=== PATIENT | female | born 1935 | race Caucasian/White ===

== ENCOUNTER 2017-09-13 11:04 | Inpatient (IN) | payer MEDICARE ==
[~2017-09-13] VITALS: Ht 157.5 cm; Wt 80.2 kg
[2017-09-13] MEDS: DOXYCYCLINE 100MG+NS 250ML 250 ML IV SCH (02:45)
[2017-09-13 11:39] LABS: BASOPHILS % (AUTO) 0.5 % (0.0-5.0); EOSINOPHILS % (AUTO) 1.2 % (0.0-8.0); HEMATOCRIT 38.7 % (36-48); LYMPHOCYTES % (AUTO) 19.5 % (21.0-51.0); MEAN CORPUSCULAR HEMOGLOBIN 31.4 pg (27.0-33.0); MEAN CORPUSCULAR HGB CONC 33.5 g/dL (32.0-36.0); MEAN CORPUSCULAR VOLUME 93.6 fL (79-99); MONOCYTES % (AUTO) 8.7 % (3.0-13.0); NEUTROPHILS % (AUTO) 70.1 % (40.0-77.0); PLATELET COUNT (AUTO) 226 K/uL (130-400); RED BLOOD CELL COUNT(AUTO) 4.14 MIL/uL (4.00-5.50); RED CELL DISTRIBUTION WIDTH 13.1 % (11.0-15.5); WHITE BLOOD COUNT (AUTO) 9.2 K/uL (4.8-10.8)
[2017-09-13 11:45] LABS: APPEARANCE,URINE Clear (CLEAR); BILIRUBIN,URINE Negative (NEGATIVE); COLOR,URINE Yellow (YELLOW); GLUCOSE, URINE (UA) Negative (NEGATIVE); KETONES,URINE Negative (NEGATIVE); LEUKOCYTE ESTERASE ,URINE Trace (NEGATIVE); NITRATE,URINE Negative (NEGATIVE); OCCULT BLOOD,URINE Negative (NEGATIVE); PROTEIN,URINE Negative (NEGATIVE); UROBILINOGEN,URINE 0.2 mg/dL (0.2-1.0)
[2017-09-13 11:57] LABS: BACTERIA,URINE Rare /HPF (None Seen); RBC,URINE 0-1 /HPF (0-1); SQUAMOUS EPITHELIAL CELL,UR Rare /LPF (0-2); WBC,URINE 0-1 /HPF (0-1)
[2017-09-13 11:58] LABS: CREATININE 1.1 mg/dL (0.5-1.5); POTASSIUM 3.5 mmol/L (3.5-5.1)
[2017-09-13] MEDS ORDERED: IOPAMIDOL-370 75 ML VIAL IV ONE (12:01)
[2017-09-13 12:02] LABS: ALBUMIN 3.3 g/dL (3.5-5.0); BILIRUBIN,TOTAL 0.8 mg/dL (0.2-1.0); TOTAL PROTEIN, SERUM 6.9 g/dL (6.0-8.3)
[2017-09-13] MEDS ORDERED: ONDANSETRON HCL 4 MG/2 ML VIAL ONE ×2 (12:48→15:53)
[2017-09-13] MEDS ORDERED: HYDROMORPHONE 1 MG/1 ML AMP ONE (12:49)
[2017-09-13] MEDS ORDERED: CEFTRIAXONE SODIUM 1 GM ONE (13:00)
[2017-09-13] MEDS ORDERED: METRONIDAZOLE 500MG/100ML BAG 100 ML ONE (13:02)
[2017-09-13] MEDS ORDERED: SODIUM CHLORIDE 0.9% 1000ML 1,000 ML IV SCH ×2 (14:31→14:45)
[2017-09-13] MEDS ORDERED: KETOROLAC TROMETHAMINE 15MG/ML IV PRN (14:45)
[2017-09-13] MEDS ORDERED: MORPHINE SULFATE 2 MG/ML 1ML SYG IV PRN (14:45)
[2017-09-13] MEDS ORDERED: METRONIDAZOLE 500MG/100ML BAG 100 ML IV SCH (14:45)
[2017-09-13] MEDS ORDERED: ACETAMINOPHEN 325 MG TAB PO PRN ×2 (14:45)
[2017-09-13] MEDS ORDERED: GUAIFENESIN-DM 200/20 MG 10 ML PO PRN (14:45)
[2017-09-13 18:12] VITALS: BP 148/86
[2017-09-13 20:21] VITALS: BP 127/72
[2017-09-13] MEDS: CEFTAZIDIME PENTAHYDRATE 1 GM/VIAL IVP SCH (20:51)
[2017-09-13] MEDS: LACTATED RINGERS 1000ML 1,000 ML IV SCH (21:01)
[2017-09-13] MEDS: METRONIDAZOLE 500MG/100ML BAG 100 ML IVPB SCH (21:09)
[2017-09-13 23:10] VITALS: BP 134/69
[2017-09-14] MEDS: CEFTAZIDIME PENTAHYDRATE 1 GM/VIAL IVP SCH ×3 (03:56→21:24)
[2017-09-14 04:27] VITALS: BP 138/63
[2017-09-14 04:32] LABS: HEMATOCRIT 32.3 % (36-48); MEAN CORPUSCULAR HEMOGLOBIN 33.5 pg (27.0-33.0); MEAN CORPUSCULAR HGB CONC 35.6 g/dL (32.0-36.0); MEAN CORPUSCULAR VOLUME 94.1 fL (79-99); PLATELET COUNT (AUTO) 205 K/uL (130-400); RED BLOOD CELL COUNT(AUTO) 3.44 MIL/uL (4.00-5.50); RED CELL DISTRIBUTION WIDTH 13.2 % (11.0-15.5); WHITE BLOOD COUNT (AUTO) 6.8 K/uL (4.8-10.8)
[2017-09-14 04:45] LABS: POTASSIUM 3.7 mmol/L (3.5-5.1)
[2017-09-14] MEDS: METRONIDAZOLE 500MG/100ML BAG 100 ML IVPB SCH ×4 (04:50→21:25)
[2017-09-14] MEDS: LACTATED RINGERS 1000ML 1,000 ML IV SCH ×3 (04:50→22:00)
[2017-09-14] MEDS ORDERED: DOXYCYCLINE 100MG+NS 250ML 250 ML IV ONE (04:59)
[2017-09-14] MEDS: DOXYCYCLINE 100MG+NS 250ML 250 ML IV SCH (06:25)
[2017-09-14] MEDS ORDERED: PANTOPRAZOLE SODIUM 40 MG TABLET.DR PO SCH (09:00)
[2017-09-14 09:09] VITALS: BP 134/56
[2017-09-14 11:51] VITALS: BP 131/80
[2017-09-14] MEDS: FAMOTIDINE/PF 20 MG/2 ML VIAL IV SCH (15:40)
[2017-09-14 15:57] VITALS: BP 135/76
[2017-09-14] MEDS ORDERED: METOPROLOL TARTRATE 1 MG/ML 5ML VIAL IV PRN (16:45)
[2017-09-14 18:00] VITALS: BP 159/64
[2017-09-14 19:35] VITALS: BP 172/71
[2017-09-15] VITALS (8 sets, daily range): BP systolic 126–185; BP diastolic 53–89
[2017-09-15] MEDS: METRONIDAZOLE 500MG/100ML BAG 100 ML IVPB SCH ×4 (03:12→21:30)
[2017-09-15] MEDS: ONDANSETRON HCL 4 MG/2 ML VIAL IV PRN ×2 (04:03→12:13)
[2017-09-15] MEDS: CEFTAZIDIME PENTAHYDRATE 1 GM/VIAL IVP SCH ×3 (05:03→21:16)
[2017-09-15 05:51] LABS: HEMATOCRIT 30.6 % (36-48); MEAN CORPUSCULAR HEMOGLOBIN 32.2 pg (27.0-33.0); MEAN CORPUSCULAR HGB CONC 34.4 g/dL (32.0-36.0); MEAN CORPUSCULAR VOLUME 93.7 fL (79-99); PLATELET COUNT (AUTO) 211 K/uL (130-400); RED BLOOD CELL COUNT(AUTO) 3.27 MIL/uL (4.00-5.50); RED CELL DISTRIBUTION WIDTH 12.7 % (11.0-15.5); WHITE BLOOD COUNT (AUTO) 6.2 K/uL (4.8-10.8)
[2017-09-15 05:56] LABS: CREATININE 0.9 mg/dL (0.5-1.5)
[2017-09-15] MEDS: FAMOTIDINE/PF 20 MG/2 ML VIAL IV SCH (09:26)
[2017-09-15] MEDS: LACTATED RINGERS 1000ML 1,000 ML IV SCH ×2 (09:27→21:16)
[2017-09-16] MEDS: LACTATED RINGERS 1000ML 1,000 ML IV SCH ×3 (04:07→20:37)
[2017-09-16] MEDS: METRONIDAZOLE 500MG/100ML BAG 100 ML IVPB SCH ×4 (04:07→21:07)
[2017-09-16] MEDS: CEFTAZIDIME PENTAHYDRATE 1 GM/VIAL IVP SCH ×3 (04:07→21:07)
[2017-09-16] MEDS ORDERED: ESOM40CA54 PO (04:13)
[2017-09-16] MEDS ORDERED: EZET10TA26 PO (04:13)
[2017-09-16] MEDS ORDERED: COLE3.75 PO (04:13)
[2017-09-16] MEDS ORDERED: LISI10TA7 PO (04:13)
[2017-09-16 05:05] VITALS: BP 133/64
[2017-09-16 06:05] LABS: HEMATOCRIT 31.4 % (36-48); MEAN CORPUSCULAR HEMOGLOBIN 32.4 pg (27.0-33.0); MEAN CORPUSCULAR HGB CONC 34.2 g/dL (32.0-36.0); MEAN CORPUSCULAR VOLUME 94.5 fL (79-99); PLATELET COUNT (AUTO) 208 K/uL (130-400); RED BLOOD CELL COUNT(AUTO) 3.33 MIL/uL (4.00-5.50); WHITE BLOOD COUNT (AUTO) 5.6 K/uL (4.8-10.8)
[2017-09-16 07:00] VITALS: BP 129/71
[2017-09-16] MEDS: FAMOTIDINE/PF 20 MG/2 ML VIAL IV SCH (08:23)
[2017-09-16 11:00] VITALS: BP 144/80
[2017-09-16 15:59] VITALS: BP 182/77
[2017-09-16 20:00] VITALS: BP 149/78
[2017-09-16 23:54] VITALS: BP 153/67
[2017-09-17] MEDS: CEFTAZIDIME PENTAHYDRATE 1 GM/VIAL IVP SCH ×2 (02:42→10:44)
[2017-09-17] MEDS: METRONIDAZOLE 500MG/100ML BAG 100 ML IVPB SCH ×3 (02:43→14:57)
[2017-09-17 04:00] VITALS: BP 149/77
[2017-09-17] MEDS: LACTATED RINGERS 1000ML 1,000 ML IV SCH ×2 (04:29→10:45)
[2017-09-17 05:26] LABS: HEMATOCRIT 30.6 % (36-48); MEAN CORPUSCULAR HEMOGLOBIN 32.1 pg (27.0-33.0); MEAN CORPUSCULAR HGB CONC 34.6 g/dL (32.0-36.0); MEAN CORPUSCULAR VOLUME 92.8 fL (79-99); PLATELET COUNT (AUTO) 221 K/uL (130-400); RED CELL DISTRIBUTION WIDTH 13.1 % (11.0-15.5)
[2017-09-17 07:00] VITALS: BP 155/86
[2017-09-17] MEDS: FAMOTIDINE/PF 20 MG/2 ML VIAL IV SCH (10:44)
[2017-09-17 11:00] VITALS: BP 152/89
[2017-09-17 15:58] VITALS: BP 148/87
[2017-09-18] MEDS ORDERED: WELCHOL PO SCH (09:00)
[2017-09-18] MEDS ORDERED: LISINOPRIL 10 MG TABLET PO SCH (09:00)
[2017-09-18] MEDS ORDERED: EZETIMIBE 10 MG TAB PO SCH (09:00)
[2017-09-19] MEDS ORDERED: PANTOPRAZOLE SODIUM 40 MG TABLET.DR PO SCH (09:00)
[2017-09-19] MEDS ORDERED: NON-FORMULARY MEDICATION 1 EACH (Esomeprazole Magnesium 40 MG) PO SCH (09:00)
== END 2017-09-17 18:35 | disposition home or self-care (01) | DRG 392 ==
LOC: EDH 11:04 → EDHIP 14:31 → 3AH 17:37
PROVIDERS: ADMIT Family Medicine; ATTEND Family Medicine
DX: K57.32 Diverticulitis of large intestine without perforation or abscess without bleeding (principal); E86.0 Dehydration; E78.5 Hyperlipidemia, unspecified; I10 Essential (primary) hypertension; Z88.0 Allergy status to penicillin; Z88.8 Allergy status to other drugs, medicaments and biological substances; Z90.710 Acquired absence of both cervix and uterus; Z95.0 Presence of cardiac pacemaker
CPT/HCPCS: 36415; 74018; 74177; 80048; 80053; 81001; 82150; 83690; 84484; 85025; 85027; 93971; A4218; J0696; J0713; J1170; J1885; J2405; J3490; J7030; J7120; Q9967

== ENCOUNTER 2017-12-24 09:33 | Emergency (ER) | payer MEDICARE ==
[~2017-12-24 09:33] MED LIST: COLE3.75 PO; ESOM40CA54 PO; EZET10TA26 PO; LISI10TA7 PO
[2017-12-24 10:03] LABS: APPEARANCE,URINE Clear (CLEAR); BILIRUBIN,URINE Negative (NEGATIVE); COLOR,URINE Yellow (YELLOW); GLUCOSE, URINE (UA) Negative (NEGATIVE); KETONES,URINE Negative (NEGATIVE); LEUKOCYTE ESTERASE ,URINE Small (NEGATIVE); NITRATE,URINE Negative (NEGATIVE); OCCULT BLOOD,URINE Negative (NEGATIVE); PH,URINE 5.5 (5.0-8.0); PROTEIN,URINE Negative (NEGATIVE); UROBILINOGEN,URINE 0.2 mg/dL (0.2-1.0)
[2017-12-24 10:07] LABS: BACTERIA,URINE Rare /HPF (None Seen); SQUAMOUS EPITHELIAL CELL,UR Rare /HPF (0-2); WBC,URINE 0-1 /HPF (0-1)
[2017-12-24 10:22] LABS: CREATININE 0.9 mg/dL (0.5-1.5); POTASSIUM 4.1 mmol/L (3.5-5.1)
[2017-12-24 10:25] LABS: BASOPHILS % (AUTO) 0.6 % (0.0-5.0); EOSINOPHILS % (AUTO) 2.1 % (0.0-8.0); HEMATOCRIT 39.8 % (36-48); MEAN CORPUSCULAR HEMOGLOBIN 31.2 pg (27.0-33.0); MEAN CORPUSCULAR HGB CONC 33.3 g/dL (32.0-36.0); MEAN CORPUSCULAR VOLUME 93.6 fL (79-99); MONOCYTES % (AUTO) 7.5 % (3.0-13.0); NEUTROPHILS % (AUTO) 58.8 % (40.0-77.0); NUCLEATED RED BLOOD CELLS 0.1 % (0.0-0.19); PLATELET COUNT (AUTO) 241 K/uL (130-400); RED BLOOD CELL COUNT(AUTO) 4.25 MIL/uL (4.00-5.50); RED CELL DISTRIBUTION WIDTH 13.6 % (11.0-15.5); WHITE BLOOD COUNT (AUTO) 5.9 K/uL (4.8-10.8)
[2017-12-24 10:26] LABS: ALBUMIN 3.3 g/dL (3.5-5.0); BILIRUBIN,TOTAL 0.6 mg/dL (0.2-1.0); INR 0.93 (0.85-1.15); PARTIAL THROMBOPLASTIN TIME 23.9 SEC (26.3-35.5); PROTHROMBIN TIME 9.8 SEC (9.6-11.6); TOTAL PROTEIN, SERUM 6.9 g/dL (6.0-8.3)
== END 2017-12-24 11:41 | disposition home or self-care (01) ==
LOC: EDH 09:33
DX: S06.0X0A Concussion without loss of consciousness, initial encounter (principal); S40.022A Contusion of left upper arm, initial encounter; S70.02XA Contusion of left hip, initial encounter; H53.9 Unspecified visual disturbance; I10 Essential (primary) hypertension; E78.5 Hyperlipidemia, unspecified; Z88.1 Allergy status to other antibiotic agents; Z88.8 Allergy status to other drugs, medicaments and biological substances; W18.39XA Other fall on same level, initial encounter; Y93.01 Activity, walking, marching and hiking; Y92.89 Other specified places as the place of occurrence of the external cause; Y99.8 Other external cause status
CPT/HCPCS: 36415; 70450; 70486; 80053; 81001; 85025; 85610; 85730

== ENCOUNTER 2018-02-25 11:07 | Inpatient (IN) | payer MEDICARE ==
[~2018-02-25] VITALS: Ht 157.5 cm; Wt 77.0 kg
[2018-02-25 11:23] LABS: BASOPHILS % (AUTO) 0.5 % (0.0-5.0); EOSINOPHILS % (AUTO) 2.5 % (0.0-8.0); LYMPHOCYTES % (AUTO) 29.7 % (21.0-51.0); MEAN CORPUSCULAR HEMOGLOBIN 32.2 pg (27.0-33.0); MEAN CORPUSCULAR HGB CONC 33.8 g/dL (32.0-36.0); MEAN CORPUSCULAR VOLUME 95.3 fL (79-99); MONOCYTES % (AUTO) 8.5 % (3.0-13.0); NEUTROPHILS % (AUTO) 58.8 % (40.0-77.0); PLATELET COUNT (AUTO) 272 K/uL (130-400); RED CELL DISTRIBUTION WIDTH 13.6 % (11.0-15.5); WHITE BLOOD COUNT (AUTO) 5.8 K/uL (4.8-10.8)
[2018-02-25 11:36] LABS: INR 0.91 (0.85-1.15); PARTIAL THROMBOPLASTIN TIME 22.9 SEC (26.3-35.5); PROTHROMBIN TIME 9.6 SEC (9.6-11.6)
[2018-02-25] MEDS ORDERED: ASPIRIN 325MG EC TAB 325 MG TABLET.DR PO ONE (11:40)
[2018-02-25] MEDS ORDERED: ACETAMINOPHEN 325 MG TAB ONE (11:43)
[2018-02-25 11:44] LABS: ALBUMIN 3.6 g/dL (3.5-5.0); BILIRUBIN,TOTAL 0.5 mg/dL (0.2-1.0); CREATINE KINASE MB 0.6 ng/mL (0.5-3.6); TOTAL PROTEIN, SERUM 7.3 g/dL (6.0-8.3)
[2018-02-25] MEDS ORDERED: NITROGLYCERIN 1GM/1 INCH PACKET TD ONE (11:44)
[2018-02-25] MEDS ORDERED: NITROGLYCERIN 0.4 MG SL TAB SL ONE ×2 (13:03→18:26)
[2018-02-25] MEDS ORDERED: IOPAMIDOL-370 100 ML VIAL IV ONE (14:03)
[2018-02-25] MEDS ORDERED: ACETAMINOPHEN 325 MG TAB PO PRN (16:00)
[2018-02-25 16:58] VITALS: BP 140/79
[2018-02-25 17:41] LABS: CREATINE KINASE MB 0.6 ng/mL (0.5-3.6); CREATINE KINASE, TOTAL 68 U/L (21-232); MYOGLOBIN 86 ng/mL (10-92); TROPONIN I < 0.04 ng/mL (0.00-0.06)
[2018-02-25] MEDS ORDERED: COLE3.75 PO (17:56)
[2018-02-25] MEDS ORDERED: SOLI10TA PO (17:56)
[2018-02-25 18:28] VITALS: BP 150/81
[2018-02-25] MEDS ORDERED: NITROGLYCERIN 0.4 MG SL TAB SL PRN (18:30)
[2018-02-25 18:35] VITALS: BP 136/75
[2018-02-25 19:42] VITALS: BP 124/75
[2018-02-25] MEDS: ALPRAZOLAM 0.25 MG TABLET PO SCH (21:08)
[2018-02-25 23:55] VITALS: BP 136/72
[2018-02-26 03:59] VITALS: BP 142/83
[2018-02-26 05:12] LABS: CHOLESTEROL 160 mg/dL (<200); HDL CHOLESTEROL 61 mg/dL (35-85); LDL DIRECT 93 mg/dL (0-99); TRIGLYCERIDES 43 mg/dL (30-200)
[2018-02-26] MEDS: ALPRAZOLAM 0.25 MG TABLET PO SCH ×2 (05:26→13:01)
[2018-02-26 07:33] VITALS: BP 166/83
[2018-02-26] MEDS ORDERED: LISINOPRIL 10 MG TABLET ONE (07:42)
[2018-02-26] MEDS ORDERED: EZETIMIBE 10 MG TAB ONE (07:42)
[2018-02-26] MEDS: LISINOPRIL 10 MG TABLET PO SCH (09:00)
[2018-02-26] MEDS: REGADENOSON 0.4 MG/5 ML PF SYG IVP SCH ×2 (09:00→10:36)
[2018-02-26] MEDS: EZETIMIBE 10 MG TAB PO SCH (09:00)
[2018-02-26] MEDS ORDERED: ONDANSETRON HCL 4 MG/2 ML VIAL ONE (11:20)
[2018-02-26 11:36] VITALS: BP 171/97
[2018-02-26 15:58] VITALS: BP 163/88
[2018-02-26 19:32] VITALS: BP 145/80
[2018-02-26] MEDS ORDERED: ALPRAZOLAM 0.25 MG TABLET PO PRN (22:00)
[2018-02-26 23:39] VITALS: BP 132/78
[2018-02-27] VITALS (9 sets, daily range): BP systolic 139–157; BP diastolic 72–98
[2018-02-27] MEDS ORDERED: IOHEXOL 350 MG/ML 100ML INFUS..BTL IV ONE (07:18)
[2018-02-27] MEDS ORDERED: BIVALIRUDIN 250 MG/VIAL IV ONE (07:18)
[2018-02-27] MEDS ORDERED: NITROGLYCERIN 5 MG/ML 10 ML VIAL IV ONE (07:18)
[2018-02-27] MEDS ORDERED: IOHEXOL-350 50ML VIAL IV ONE (07:18)
[2018-02-27] MEDS ORDERED: LIDOCAINE HCL-MPF 2% 5ML VIAL ONE (07:18)
[2018-02-27] MEDS ORDERED: MIDAZOLAM HCL 1 MG/ML 2ML VIAL ONE (07:50)
[2018-02-27] MEDS ORDERED: FENTANYL CITRATE PF 50 MCG/1 ML 2ML VIAL ONE (07:51)
[2018-02-27] MEDS ORDERED: SODIUM CHLORIDE 0.9% 1000ML 1,000 ML IV SCH (08:11)
[2018-02-27] MEDS ORDERED: GLUCAGON 1MG KIT 1 MG ML IM PRN (08:15)
[2018-02-27] MEDS ORDERED: DEXTROSE 50%-WATER 50 ML DISP.SYRIN IV PRN (08:15)
[2018-02-27] MEDS: EZETIMIBE 10 MG TAB PO SCH (08:36)
[2018-02-27] MEDS: LISINOPRIL 10 MG TABLET PO SCH (08:36)
[2018-02-27] MEDS ORDERED: PANTOPRAZOLE SODIUM 40 MG TABLET.DR PO SCH (09:00)
[2018-02-27] MEDS ORDERED: WARFARIN SODIUM 2.5 MG TAB PO SCH (16:00)
== END 2018-02-27 14:00 | disposition home or self-care (01) | DRG 287 ==
LOC: EDH 11:07 → EDHIP 14:00 → 2DH 16:38
PROVIDERS: ADMIT Internal Medicine Cardiovascular Disease; ATTEND Internal Medicine Cardiovascular Disease
PROC: 4A023N7 Measurement of Cardiac Sampling and Pressure, Left Heart, Percutaneous Approach (ICD-10-PCS; principal; 2018-02-27)
PROC: B2111ZZ Fluoroscopy of Multiple Coronary Arteries using Low Osmolar Contrast (ICD-10-PCS; 2018-02-27)
PROC: B2151ZZ Fluoroscopy of Left Heart using Low Osmolar Contrast (ICD-10-PCS; 2018-02-27)
DX: I25.10 Atherosclerotic heart disease of native coronary artery without angina pectoris (principal); E78.5 Hyperlipidemia, unspecified; I10 Essential (primary) hypertension; I49.5 Sick sinus syndrome; Z90.710 Acquired absence of both cervix and uterus; Z95.0 Presence of cardiac pacemaker; K57.30 Diverticulosis of large intestine without perforation or abscess without bleeding; Z88.5 Allergy status to narcotic agent; Z88.0 Allergy status to penicillin; Z88.2 Allergy status to sulfonamides; Z88.8 Allergy status to other drugs, medicaments and biological substances; Z79.899 Other long term (current) drug therapy; Z90.722 Acquired absence of ovaries, bilateral
CPT/HCPCS: 36415; 71045; 71275; 78452; 80053; 80061; 82550; 82553; 83690; 83874; 83880; 84484; 85025; 85610; 85730; 93005; 93017; 93306; 93458; 96374; 99156; 99157; A9500; C1760; C1894; J0583; J1644; J2250; J2405; J2785; J3010; J3490; J7030; Q9967

== ENCOUNTER 2018-06-19 06:54 | Day surgery (SDC) | payer MEDICARE ==
[2018-06-16 15:16] VITALS: BP 128/67
[2018-06-16 15:21] LABS: BASOPHILS % (AUTO) 0.5 % (0.0-5.0); HEMATOCRIT 39.2 % (36-48); LYMPHOCYTES % (AUTO) 29.7 % (21.0-51.0); MEAN CORPUSCULAR HEMOGLOBIN 32.4 pg (27.0-33.0); MEAN CORPUSCULAR VOLUME 95.4 fL (79-99); MONOCYTES % (AUTO) 8.3 % (3.0-13.0); NEUTROPHILS % (AUTO) 57.5 % (40.0-77.0); PLATELET COUNT (AUTO) 272 K/uL (130-400); RED BLOOD CELL COUNT(AUTO) 4.11 MIL/uL (4.00-5.50); RED CELL DISTRIBUTION WIDTH 13.8 % (11.0-15.5)
[2018-06-16 15:23] LABS: POTASSIUM 4.5 mmol/L (3.5-5.1)
[2018-06-16 15:25] LABS: INR 0.92 (0.85-1.15); PROTHROMBIN TIME 9.7 SEC (9.6-11.6)
[2018-06-16 15:58] LABS: APPEARANCE,URINE Clear (CLEAR); BILIRUBIN,URINE Negative (NEGATIVE); COLOR,URINE Yellow (YELLOW); GLUCOSE, URINE (UA) Negative (NEGATIVE); KETONES,URINE Negative (NEGATIVE); LEUKOCYTE ESTERASE ,URINE Trace (NEGATIVE); NITRATE,URINE Negative (NEGATIVE); OCCULT BLOOD,URINE Negative (NEGATIVE); PH,URINE 6.5 (5.0-8.0); PROTEIN,URINE Negative (NEGATIVE)
[2018-06-16 16:16] LABS: BACTERIA,URINE Rare /HPF (None Seen); MUCUS,URINE Rare LPF (None Seen); RBC,URINE 0-1 /HPF (0-1)
[~2018-06-19] VITALS: Ht 162.6 cm; Wt 79.9 kg
[2018-06-19] VITALS (13 sets, daily range): BP systolic 119–148; BP diastolic 59–73
[~2018-06-19 06:54] MED LIST changes: +ASPI-555 PO; +DILT180C86 PO; +MIRA50TA PO; +NITR100C4 PO
[2018-06-19] MEDS ORDERED: LACTATED RINGERS 1000ML 1,000 ML IV ONE (07:55)
[2018-06-19] MEDS ORDERED: SCOPOLAMINE HYDROBROMIDE 1 EACH ADH..PATCH TD ONE (07:56)
[2018-06-19] MEDS ORDERED: MEROPENEM 500 MG VIAL IVP PRN (08:00)
[2018-06-19] MEDS ORDERED: SCOPOLAMINE HYDROBROMIDE 1 EACH ADH..PATCH TD SCH (08:00)
[2018-06-19] MEDS ORDERED: LIDOCAINE HCL MPF 1% 5ML VIAL ONE (08:56)
[2018-06-19] MEDS ORDERED: ONDANSETRON HCL 4 MG/2 ML VIAL ONE (08:56)
[2018-06-19] MEDS ORDERED: SUCCINYLCHOLINE CHLORIDE 20 MG/ML 10 ML VIAL ONE (08:56)
[2018-06-19] MEDS ORDERED: ROCURONIUM 10MG/1ML SYR 10 MG/ML ML ONE (08:57)
[2018-06-19] MEDS ORDERED: FENTANYL CITRATE PF 50 MCG/1 ML 2ML VIAL ONE (08:57)
[2018-06-19] MEDS ORDERED: PROPOFOL 10 MG/ML 20ML VIAL IV ONE (08:57)
[2018-06-19] MEDS ORDERED: GLYCOPYRROLATE 1 MG/5 ML SYRINGE ONE (09:02)
[2018-06-19] MEDS ORDERED: NEOSTIGMINE 5MG/5ML SYR IV ONE (09:02)
[2018-06-19] MEDS ORDERED: HYDROMORPHONE 1 MG/1 ML AMP ONE (09:49)
[2018-06-19] MEDS ORDERED: KETAMINE 50MG/ML SYRINGE 50 MG/ML DISP.SYRIN IV ONE (09:51)
[2018-06-19] MEDS ORDERED: EPHEDRINE SULFATE 50 MG/ML AMPULE ONE (10:00)
[2018-06-19] MEDS ORDERED: NEOMY SULF/POLYMYXIN B SULFATE 1 ML AMPUL IR ONE (10:28)
[2018-06-19] MEDS ORDERED: ESTROGENS,CONJUGATED 0.625 MG/GM 42.5 GM VAG CRM VG ONE (10:28)
[2018-06-19] MEDS ORDERED: LIDOCAINE 1%-EPI 1:100,000 20 ML VIAL IJ ONE (10:28)
[2018-06-19] MEDS ORDERED: PHENYLEPHRINE HCL 10 MG/ML 1ML VIAL IV ONE (10:29)
== END 2018-06-19 13:20 | disposition home or self-care (01) ==
LOC: DAH 06:54
PROVIDERS: ATTEND Urology
DX: N39.46 Mixed incontinence (principal); N39.0 Urinary tract infection, site not specified; I10 Essential (primary) hypertension; Z95.0 Presence of cardiac pacemaker; Z90.710 Acquired absence of both cervix and uterus; Z79.899 Other long term (current) drug therapy; Z88.0 Allergy status to penicillin; K21.9 Gastro-esophageal reflux disease without esophagitis; Z98.890 Other specified postprocedural states; R00.1 Bradycardia, unspecified
CPT/HCPCS: 36415; 57288; 71045; 80048; 81001; 85025; 85610; 87088; A4215; A4344; A4600; A4930; C1771; J0330; J1170; J2185; J2370; J2405; J2704; J3010; J3490 ×4; J7030; J7120; J2710

== ENCOUNTER → 2018-07-30 | Outpatient (CLI) | payer MEDICARE | END | disposition home or self-care (01) | LOC: RAH 09:41 | PROVIDERS: ATTEND Internal Medicine Cardiovascular Disease | DX: I10 Essential (primary) hypertension (principal); R60.9 Edema, unspecified; Z95.0 Presence of cardiac pacemaker; Z72.89 Other problems related to lifestyle | CPT/HCPCS: 93306; 93970 ==

== ENCOUNTER 2020-10-21 05:55 | Day surgery (SDC) | payer MEDICARE ==
[2020-10-19 09:43] LABS: BASOPHILS % (AUTO) 0.5 % (0.0-5.0); EOSINOPHILS % (AUTO) 2.4 % (0.0-8.0); HEMATOCRIT 39.7 % (36-48); LYMPHOCYTES % (AUTO) 27.7 % (21.0-51.0); MEAN CORPUSCULAR HEMOGLOBIN 32.1 pg (27.0-33.0); MEAN CORPUSCULAR VOLUME 94.5 fL (79-99); MONOCYTES % (AUTO) 8.4 % (3.0-13.0); NEUTROPHILS % (AUTO) 60.7 % (40.0-77.0); PLATELET COUNT (AUTO) 274 K/uL (130-400); RED CELL DISTRIBUTION WIDTH 12.3 % (11.0-15.5); WHITE BLOOD COUNT (AUTO) 6.2 K/uL (4.8-10.8)
[2020-10-19 09:51] LABS: CREATININE 1.1 mg/dL (0.5-1.5); POTASSIUM 4.1 mmol/L (3.5-5.1)
[2020-10-19 09:54] LABS: PROTHROMBIN TIME 10.9 SEC (9.6-11.6)
[2020-10-19 09:56] LABS: PARTIAL THROMBOPLASTIN TIME 24.7 SEC (26.3-35.5)
[2020-10-19 13:15] VITALS: BP 167/68
[2020-10-21] VITALS (12 sets, daily range): BP systolic 114–144; BP diastolic 46–71
[~2020-10-21] VITALS: Ht 157.5 cm; Wt 80.8 kg
[~2020-10-21 05:55] MED LIST changes: -ASPI-555 PO; +CALC-1153 PO; +CARV3.12 PO; -COLE3.75 PO; -DILT180C86 PO; -EZET10TA26 PO; +EZET10TA48 PO; +HYDR25TA PO; -LISI10TA7 PO; +MULT-1258 PO; -NITR100C4 PO
[2020-10-21] MEDS ORDERED: SODIUM CHLORIDE 0.9% 1000ML 1,000 ML IV ONE (06:09)
[2020-10-21] MEDS ORDERED: MEPERIDINE-PF 25 MG/ML SYG ONE ×3 (08:16→09:30)
[2020-10-21] MEDS ORDERED: BUPIVACAINE/PF 0.25% 30ML VIAL IJ ONE (08:16)
[2020-10-21] MEDS ORDERED: MIDAZOLAM HCL 1 MG/ML 2ML VIAL ONE ×3 (08:16→09:30)
[2020-10-21] MEDS ORDERED: CEFAZOLIN SODIUM 1 GM VIAL ONE (08:16)
[2020-10-21] MEDS ORDERED: LIDOCAINE HCL 1% MDV 50ML VIAL ONE (08:17)
[2020-10-21] MEDS ORDERED: IODIXANOL 320 MG/ML 100 ML VIAL ONE (08:32)
[2020-10-21] MEDS ORDERED: VANCOMYCIN 1GM+NS 250ML 250 ML IV ONE (09:00)
[2020-10-21] MEDS ORDERED: ACETAMINOPHEN 325 MG TAB PO PRN ×2 (10:30)
[2020-10-21] MEDS ORDERED: ONDANSETRON HCL 4 MG/2 ML VIAL IV PRN (10:30)
[2020-10-21] MEDS ORDERED: SODIUM CHLORIDE 0.9% 1000ML 1,000 ML IV SCH (11:30)
== END 2020-10-21 16:55 | disposition home or self-care (01) ==
LOC: DAH 05:55
PROVIDERS: ATTEND Internal Medicine Cardiovascular Disease
DX: Z45.018 Encounter for adjustment and management of other part of cardiac pacemaker (principal); R06.00 Dyspnea, unspecified; I11.0 Hypertensive heart disease with heart failure; I50.42 Chronic combined systolic (congestive) and diastolic (congestive) heart failure; K21.9 Gastro-esophageal reflux disease without esophagitis; G62.9 Polyneuropathy, unspecified; Z79.899 Other long term (current) drug therapy; Z88.5 Allergy status to narcotic agent; Z88.2 Allergy status to sulfonamides
CPT/HCPCS: 33225; 33229; 36415; 71046; 80048; 85025; 85610; 85730; 93005; A4215; A4216; A4221; A4222; A4223 ×3; A4606; A4663; C1769 ×2; C1894; C1900; C2621; J2175 ×3; J2250 ×3; J3370; J3490 ×2; J7030; Q9967; 99156; 99157; J0690

== ENCOUNTER → 2021-01-28 | Outpatient (CLI) | payer MEDICARE | END | disposition home or self-care (01) | LOC: SLP 20:29 | PROVIDERS: ATTEND Internal Medicine Cardiovascular Disease | DX: I11.0 Hypertensive heart disease with heart failure (principal); I50.9 Heart failure, unspecified; G47.33 Obstructive sleep apnea (adult) (pediatric); I25.10 Atherosclerotic heart disease of native coronary artery without angina pectoris; R35.1 Nocturia | CPT/HCPCS: 95810 ==

== ENCOUNTER → 2021-02-10 | Outpatient (CLI) | payer MEDICARE | END | disposition home or self-care (01) | LOC: SLP 20:27 | PROVIDERS: ATTEND Internal Medicine Cardiovascular Disease | DX: I11.0 Hypertensive heart disease with heart failure (principal); G47.33 Obstructive sleep apnea (adult) (pediatric); I25.10 Atherosclerotic heart disease of native coronary artery without angina pectoris; R35.1 Nocturia | CPT/HCPCS: 95811 ==

== ENCOUNTER 2023-10-18 12:13 | Emergency (ER) | payer MEDICARE ==
[~2023-10-18] VITALS: Ht 157.5 cm; Wt 73.9 kg
[~2023-10-18 12:13] MED LIST changes: +APIX5TAB PO; -CARV3.12 PO; -HYDR25TA PO; +METO25TA3 PO
[2023-10-18 12:42] LABS: BASOPHILS # (AUTO) 0.01 K/uL (0.00-0.20); BASOPHILS % (AUTO) 0.2 % (0.0-5.0); EOSINOPHILS % (AUTO) 1.6 % (0.0-8.0); HEMATOCRIT 27.9 % (36-48); IMMATURE GRANULOCYTE ABSOLUTE 0.05 K/uL (0-1); LYMPHOCYTES # (AUTO) 0.7 K/uL (1.0-4.8); LYMPHOCYTES % (AUTO) 11.4 % (21.0-51.0); MEAN CORPUSCULAR HEMOGLOBIN 33.1 pg (27.0-33.0); MEAN CORPUSCULAR HGB CONC 35.1 g/dL (32.0-36.0); MEAN CORPUSCULAR VOLUME 94.3 fL (79-99); MONOCYTES # (AUTO) 0.6 K/uL (0.1-1.0); MONOCYTES % (AUTO) 9.9 % (3.0-13.0); NEUTROPHILS # (AUTO) 4.7 K/uL (1.8-7.7); NEUTROPHILS % (AUTO) 76.1 % (40.0-77.0); PLATELET COUNT (AUTO) 298 K/uL (130-400); RED BLOOD CELL COUNT(AUTO) 2.96 MIL/uL (4.00-5.50); RED CELL DISTRIBUTION WIDTH 13.4 % (11.0-15.5); WHITE BLOOD COUNT (AUTO) 6.1 K/uL (4.8-10.8)
[2023-10-18 13:06] LABS: B-TYPE NATRIURETIC PEPTIDE 122 pg/mL (0-100)
[2023-10-18 13:08] LABS: ALBUMIN 2.3 g/dL (3.5-5.0); BILIRUBIN,TOTAL 0.3 mg/dL (0.2-1.0); CREATININE 0.8 mg/dL (0.5-1.5); POTASSIUM 3.8 mmol/L (3.5-5.1); TOTAL PROTEIN, SERUM 5.9 g/dL (6.0-8.3)
[2023-10-18 13:21] LABS: INR 1.05 (0.85-1.15); PROTHROMBIN TIME 12.1 SEC (9.6-11.6)
[2023-10-18] MEDS: FAMOTIDINE 20MG VIAL IV ONE (13:27)
[2023-10-18] MEDS: HYDROXYZINE 25 MG TABLET PO ONE (13:27)
[2023-10-18] MEDS: KETOROLAC 15MG/ML VIAL (15MG/ML) IV ONE (13:27)
[2023-10-18] MEDS: METOCLOPRAMIDE 10 MG/2 ML VIAL IVP ONE (14:21)
[2023-10-18] MEDS: DEXAMETHASONE SOD PHOSPHATE 4 MG/ML 1ML VIAL IVP ONE (14:22)
[2023-10-18] MEDS ORDERED: METO-296 PO (18:04)
[2023-10-18] MEDS ORDERED: HYDR50CA50 PO (18:04)
[2023-10-18 18:21] VITALS: BP 127/59; PULSE 76; RESP 18; O2SAT 96
== END 2023-10-18 18:45 | disposition home or self-care (01) ==
LOC: EDH 12:13
DX: G44.209 Tension-type headache, unspecified, not intractable (principal); I10 Essential (primary) hypertension; Z79.01 Long term (current) use of anticoagulants; Z79.899 Other long term (current) drug therapy; Z88.1 Allergy status to other antibiotic agents
CPT/HCPCS: 99285; 96374; 96375; 70450; 71045; 84484 ×2; 80053; 83880; 85025; 85610; 36415; 93005 ×2; J1100; J3490; J2765; J1885

== ENCOUNTER 2023-10-27 13:38 | Inpatient (IN) | payer MEDICARE ==
[~2023-10-27] VITALS: Ht 157.5 cm; Wt 73.1 kg
[2023-10-27] VITALS (26 sets, daily range): BP systolic 98–128; BP diastolic 52–72; PULSE 72–118; RESP 21–44; O2SAT 94–100
[~2023-10-27 13:38] MED LIST changes: +HYDR50CA50 PO; +METO-296 PO
[2023-10-27 14:33] LABS: BASOPHILS # (AUTO) 0.03 K/uL (0.00-0.20); BASOPHILS % (AUTO) 0.3 % (0.0-5.0); EOSINOPHILS # (AUTO) 0.13 K/uL (0.00-0.70); EOSINOPHILS % (AUTO) 1.1 % (0.0-8.0); IMMATURE GRANULOCYTE ABSOLUTE 0.12 K/uL (0-1); LYMPHOCYTES # (AUTO) 0.5 K/uL (1.0-4.8); LYMPHOCYTES % (AUTO) 4.5 % (21.0-51.0); MEAN CORPUSCULAR HEMOGLOBIN 31.8 pg (27.0-33.0); MEAN CORPUSCULAR HGB CONC 34.8 g/dL (32.0-36.0); MEAN CORPUSCULAR VOLUME 91.2 fL (79-99); MONOCYTES # (AUTO) 0.5 K/uL (0.1-1.0); MONOCYTES % (AUTO) 4.1 % (3.0-13.0); NEUTROPHILS # (AUTO) 10.2 K/uL (1.8-7.7); PLATELET COUNT (AUTO) 492 K/uL (130-400); RED BLOOD CELL COUNT(AUTO) 2.96 MIL/uL (4.00-5.50); RED CELL DISTRIBUTION WIDTH 13.5 % (11.0-15.5); WHITE BLOOD COUNT (AUTO) 11.4 K/uL (4.8-10.8)
[2023-10-27 15:13] LABS: POTASSIUM 4.2 mmol/L (3.5-5.1)
[2023-10-27 15:18] LABS: ABG HCO3 20.8 mmol/L (21.0-28.0); ABG OXYGEN SATURATION 98.7 % (95.0-99.0); ABG PCO2 25 mmHg (32-45); ABG PH 7.539 (7.35-7.450); PO2, ARTERIAL BG 114.1 mmHg (83.0-108.0)
[2023-10-27] MEDS: ALBUTEROL 0.083% 2.5 MG/3 ML INH IH ONE (15:25)
[2023-10-27] MEDS: FUROSEMIDE 20MG VIAL IV ONE (16:14)
[2023-10-27] MEDS ORDERED: IOHEXOL 350 MG/ML 100ML INFUS..BTL IV ONE (16:21)
[2023-10-27 16:40] LABS: INR 1.16 (0.85-1.15); PROTHROMBIN TIME 13.3 SEC (9.6-11.6)
[2023-10-27 16:44] LABS: BILIRUBIN,DIRECT 0.2 mg/dL (0.0-0.3); BILIRUBIN,TOTAL 0.6 mg/dL (0.2-1.0); MAGNESIUM 1.9 mg/dL (1.80-2.40); TOTAL PROTEIN, SERUM 6.6 g/dL (6.0-8.3)
[2023-10-27 16:59] LABS: APPEARANCE,URINE CLEAR (CLEAR); BILIRUBIN,URINE NEGATIVE (NEGATIVE); COLOR,URINE LIGHT-YELLOW (YELLOW); GLUCOSE, URINE (UA) NEGATIVE (NEGATIVE); KETONES,URINE NEGATIVE (NEGATIVE); LEUKOCYTE ESTERASE ,URINE 75 Leu/uL (NEGATIVE); NITRATE,URINE NEGATIVE (NEGATIVE); OCCULT BLOOD,URINE NEGATIVE (NEGATIVE); PH,URINE 5.5 (5.0-8.0); PROTEIN,URINE NEGATIVE (NEGATIVE); UROBILINOGEN,URINE 0.2 mg/dL (0.2-1.0)
[2023-10-27 17:02] LABS: ADD UA MICROSCOPIC YES
[2023-10-27 17:04] LABS: BACTERIA,URINE FEW /HPF (None Seen); MUCUS,URINE RARE LPF (None Seen); SQUAMOUS EPITHELIAL CELL,UR RARE /HPF (0-2); WBC CLUMP RARE /HPF (0-1)
[2023-10-27 17:26] LABS: SARS-CoV-2, RNA, NAAT NEGATIVE SARS CoV-2 (NEGATIVE)
[2023-10-27] MEDS ORDERED: ZOSYN 3.375GM +NS 50ML IVPB SCH (17:30)
[2023-10-27] MEDS ORDERED: 0.9%NACL 50ML IV SCH (17:30)
[2023-10-27 17:37] LABS: INFLUENZA TYPE A Negative For Type A (NEGATIVE); INFLUENZA TYPE B Negative For Type B (NEGATIVE)
[2023-10-27] MEDS: SOLU-MEDROL 125MG VIAL ONE (17:52)
[2023-10-27] MEDS: DEXMEDETOMIDINE 400MCG/NS100ML IV ONE (17:53)
[2023-10-27] MEDS: DOXYCYCLINE 100MG+NS 250ML 250 ML IV SCH (17:53)
[2023-10-27] MEDS: SOLU-MEDROL 40MG VIAL IVP SCH (18:00)
[2023-10-27] MEDS ORDERED: KETOROLAC 15MG/ML VIAL (15MG/ML) IM PRN (18:00)
[2023-10-27] MEDS ORDERED: METOCLOPRAMIDE 10 MG TABLET PO PRN (18:00)
[2023-10-27] MEDS: BUDESONIDE 0.5 MG/2 ML INH IH SCH (18:24)
[2023-10-27] MEDS: IPRATROPIUM 0.5 MG/2.5 ML INH IH SCH (18:24)
[2023-10-27] MEDS: SOLU-MEDROL 125MG VIAL IVP ONE (18:49)
[2023-10-27] MEDS ORDERED: APIXABAN 5 MG TABLET PO SCH (20:00)
[2023-10-27] MEDS: APIXABAN 5 MG TABLET PO SCH (20:15)
[2023-10-27] MEDS: PANTOPRAZOLE 40 MG/VIAL IVP SCH (20:15)
[2023-10-27] MEDS: ZOSYN 3.375GM +NS 50ML IVPB SCH (20:15)
[2023-10-28] VITALS (49 sets, daily range): BP systolic 72–134; BP diastolic 49–78; PULSE 60–88; RESP 15–46; O2SAT 60–100
[2023-10-28 03:19] LABS: ABG BASE EXCESS 1.1 mmol/L (-2.0-3.0); ABG HCO3 23.5 mmol/L (21.0-28.0); ABG OXYGEN SATURATION 98.9 % (95.0-99.0); ABG PCO2 31 mmHg (32-45); ABG PH 7.494 (7.35-7.450); PO2, ARTERIAL BG 130.7 mmHg (83.0-108.0)
[2023-10-28 03:59] LABS: BASOPHILS # (AUTO) 0.01 K/uL (0.00-0.20); BASOPHILS % (AUTO) 0.1 % (0.0-5.0); HEMATOCRIT 25.6 % (36-48); IMMATURE GRANULOCYTE ABSOLUTE 0.08 K/uL (0-1); LYMPHOCYTES # (AUTO) 0.3 K/uL (1.0-4.8); LYMPHOCYTES % (AUTO) 3.1 % (21.0-51.0); MEAN CORPUSCULAR HEMOGLOBIN 32.4 pg (27.0-33.0); MEAN CORPUSCULAR HGB CONC 34.8 g/dL (32.0-36.0); MEAN CORPUSCULAR VOLUME 93.1 fL (79-99); MONOCYTES # (AUTO) 0.1 K/uL (0.1-1.0); NEUTROPHILS # (AUTO) 9.4 K/uL (1.8-7.7); PLATELET COUNT (AUTO) 455 K/uL (130-400); RED BLOOD CELL COUNT(AUTO) 2.75 MIL/uL (4.00-5.50); RED CELL DISTRIBUTION WIDTH 13.4 % (11.0-15.5); WHITE BLOOD COUNT (AUTO) 9.9 K/uL (4.8-10.8)
[2023-10-28 04:20] LABS: ALBUMIN 1.7 g/dL (3.5-5.0); BILIRUBIN,TOTAL 0.4 mg/dL (0.2-1.0); CREATININE 1.2 mg/dL (0.5-1.5); POTASSIUM 3.6 mmol/L (3.5-5.1); THYROID STIMULATING HORMONE 0.51 uIU/mL (0.36-3.74); TOTAL PROTEIN, SERUM 6.3 g/dL (6.0-8.3)
[2023-10-28] MEDS: POTASSIUM CHLORIDE 10% ELIXIR 20 MEQ/15 ML UDCUP PO PRN (05:40)
[2023-10-28] MEDS ORDERED: METOPROLOL SUCCINATE 25 MG TAB.SR.24H PO SCH (09:00)
[2023-10-28] MEDS: SODIUM CHLORIDE 3% FOR INHALATION 4 ML/AMP VIAL.NEB IH ONE (11:23)
[2023-10-28] MEDS: SOLU-MEDROL 40MG VIAL IVP SCH (13:03)
[2023-10-28] MEDS ORDERED: TRAM25TA PO (16:25)
[2023-10-28] MEDS: TRAMADOL HCL 50 MG TABLET PO PRN (18:38)
[2023-10-28 22:24] LABS: ABG HCO3 21.5 mmol/L (21.0-28.0); ABG OXYGEN SATURATION 98.7 % (95.0-99.0); ABG PCO2 30 mmHg (32-45); ABG PH 7.474 (7.35-7.450); CARBON MONOXIDE 0.5; HHb 1.3; PO2, ARTERIAL BG 148.2 mmHg (83.0-108.0)
[2023-10-28] MEDS: FUROSEMIDE 40MG VIAL IV ONE (22:39)
[2023-10-29] VITALS (43 sets, daily range): BP systolic 64–128; BP diastolic 33–74; PULSE 60–101; RESP 14–46; O2SAT 78–99
[2023-10-29] MEDS: DEXMEDETOMIDINE 400MCG/NS100ML IV SCH (00:03)
[2023-10-29] MEDS: SOLU-MEDROL 40MG VIAL IVP SCH (02:52)
[2023-10-29 04:30] LABS: BASOPHILS # (AUTO) 0.02 K/uL (0.00-0.20); BASOPHILS % (AUTO) 0.1 % (0.0-5.0); HEMATOCRIT 25.1 % (36-48); IMMATURE GRANULOCYTE ABSOLUTE 0.14 K/uL (0-1); LYMPHOCYTES # (AUTO) 0.5 K/uL (1.0-4.8); MEAN CORPUSCULAR HEMOGLOBIN 32.2 pg (27.0-33.0); MEAN CORPUSCULAR HGB CONC 35.5 g/dL (32.0-36.0); MEAN CORPUSCULAR VOLUME 90.9 fL (79-99); MONOCYTES # (AUTO) 0.3 K/uL (0.1-1.0); MONOCYTES % (AUTO) 2.2 % (3.0-13.0); NEUTROPHILS # (AUTO) 14.1 K/uL (1.8-7.7); NEUTROPHILS % (AUTO) 93.8 % (40.0-77.0); PLATELET COUNT (AUTO) 466 K/uL (130-400); RED BLOOD CELL COUNT(AUTO) 2.76 MIL/uL (4.00-5.50); RED CELL DISTRIBUTION WIDTH 13.7 % (11.0-15.5); WHITE BLOOD COUNT (AUTO) 15.1 K/uL (4.8-10.8)
[2023-10-29 05:00] LABS: ALBUMIN 1.6 g/dL (3.5-5.0); BILIRUBIN,TOTAL 0.5 mg/dL (0.2-1.0); CREATININE 1.6 mg/dL (0.5-1.5); MAGNESIUM 1.8 mg/dL (1.80-2.40); POTASSIUM 3.6 mmol/L (3.5-5.1)
[2023-10-29] MEDS: MAGNESIUM 2GM PREMIX 50ML 50 ML IV PRN (05:59)
[2023-10-29 08:16] LABS: ABG BASE EXCESS -2.4 mmol/L (-2.0-3.0); ABG HCO3 21.4 mmol/L (21.0-28.0); ABG OXYGEN SATURATION 97.9 % (95.0-99.0); ABG PCO2 34 mmHg (32-45); ABG PH 7.415 (7.35-7.450); PO2, ARTERIAL BG 103.6 mmHg (83.0-108.0); VENT MODE, BG BIPAP 10.7 (ROOM AIR)
[2023-10-29] MEDS: FUROSEMIDE 20MG VIAL IV SCH (12:14)
[2023-10-29] MEDS ORDERED: VANCOMYCIN PROTOCOL PER PHARMACY IV SCH (13:00)
[2023-10-29] MEDS ORDERED: VANCOMYCIN KIT 1 GM/250 ML IV.KIT IV ONE (13:00)
[2023-10-29] MEDS: CEFEPIME HCL 1 GM VIAL IVPB SCH (14:27)
[2023-10-29] MEDS: METRONIDAZOLE 500MG/100ML BAG 100 ML IVPB SCH (14:27)
[2023-10-29] MEDS: LINEZOLID 600 MG/ISO-OSM 300 ML IV SCH (17:34)
[2023-10-29] MEDS: ACETAMINOPHEN 500 MG TABLET PO PRN (23:18)
[2023-10-30] VITALS (32 sets, daily range): BP systolic 113–151; BP diastolic 51–83; PULSE 67–89; RESP 16–41; O2SAT 94–98
[2023-10-30 06:18] LABS: ABG BASE EXCESS -1.4 mmol/L (-2.0-3.0); ABG HCO3 20.7 mmol/L (21.0-28.0); ABG OXYGEN SATURATION 93.8 % (95.0-99.0); ABG PCO2 29 mmHg (32-45); ABG PH 7.479 (7.35-7.450); PO2, ARTERIAL BG 62.9 mmHg (83.0-108.0)
[2023-10-30 07:32] LABS: HEMATOCRIT 28.1 % (36-48); MEAN CORPUSCULAR HEMOGLOBIN 32.1 pg (27.0-33.0); MEAN CORPUSCULAR HGB CONC 33.8 g/dL (32.0-36.0); MEAN CORPUSCULAR VOLUME 94.9 fL (79-99); RED BLOOD CELL COUNT(AUTO) 2.96 MIL/uL (4.00-5.50); RED CELL DISTRIBUTION WIDTH 13.8 % (11.0-15.5); WHITE BLOOD COUNT (AUTO) 14.2 K/uL (4.8-10.8)
[2023-10-30 07:49] LABS: ALBUMIN 1.8 g/dL (3.5-5.0); BILIRUBIN,TOTAL 0.5 mg/dL (0.2-1.0); CREATININE 1.6 mg/dL (0.5-1.5); MAGNESIUM 2.4 mg/dL (1.80-2.40); POTASSIUM 3.1 mmol/L (3.5-5.1); TOTAL PROTEIN, SERUM 6.2 g/dL (6.0-8.3)
[2023-10-30] MEDS: KCL 20 MEQ ERTAB PO PRN (09:26)
[2023-10-30 09:27] LABS: INR 1.13 (0.85-1.15)
[2023-10-30 09:29] LABS: PARTIAL THROMBOPLASTIN TIME 28.5 SEC (26.3-35.5)
[2023-10-30] MEDS: OSELTAMIVIR PHOSPHATE 75 MG CAP PO ONE (13:12)
[2023-10-30] MEDS: PANTOPRAZOLE 40 MG/VIAL IVP ONE (13:12)
[2023-10-30] MEDS ORDERED: LIDOCAINE HCL 2% JELLY 5 ML TP ONE (15:00)
[2023-10-30] MEDS: LIDOCAINE HCL 2% JELLY 5 ML TP SCH (15:36)
[2023-10-30] MEDS: ONDANSETRON 4MG INJ IVP PRN (18:46)
[2023-10-30] MEDS: ENOXAPARIN SODIUM 80 MG/0.8 ML SQ SCH (21:15)
[2023-10-30] MEDS: PANTOPRAZOLE 40 MG/VIAL IVP SCH (21:16)
[2023-10-31] VITALS (32 sets, daily range): BP systolic 111–129; BP diastolic 59–77; PULSE 73–100; RESP 13–34; O2SAT 94–99
[2023-10-31 07:22] LABS: HEMATOCRIT 29.2 % (36-48); MEAN CORPUSCULAR HEMOGLOBIN 31.6 pg (27.0-33.0); MEAN CORPUSCULAR HGB CONC 34.2 g/dL (32.0-36.0); MEAN CORPUSCULAR VOLUME 92.4 fL (79-99); RED BLOOD CELL COUNT(AUTO) 3.16 MIL/uL (4.00-5.50); RED CELL DISTRIBUTION WIDTH 13.4 % (11.0-15.5); WHITE BLOOD COUNT (AUTO) 12.1 K/uL (4.8-10.8)
[2023-10-31 07:34] LABS: CREATININE 1.3 mg/dL (0.5-1.5)
[2023-10-31 07:36] LABS: POTASSIUM 2.9 mmol/L (3.5-5.1)
[2023-10-31] MEDS: OSELTAMIVIR PHOSPHATE 75 MG CAP PO SCH (08:08)
[2023-10-31] MEDS: POTASSIUM CHLORIDE 20MEQ/100ML 100 ML IV PRN (08:09)
[2023-10-31] MEDS: KETOROLAC 15MG/ML VIAL (15MG/ML) IV PRN (11:55)
[2023-11-01] VITALS (25 sets, daily range): BP systolic 112–141; BP diastolic 47–72; PULSE 69–90; RESP 17–33; O2SAT 94–99
[2023-11-01] MEDS: SOLU-MEDROL 40MG VIAL IVP SCH (01:29)
[2023-11-01 04:48] LABS: BASOPHILS # (AUTO) 0.01 K/uL (0.00-0.20); BASOPHILS % (AUTO) 0.1 % (0.0-5.0); EOSINOPHILS # (AUTO) 0.05 K/uL (0.00-0.70); EOSINOPHILS % (AUTO) 0.5 % (0.0-8.0); HEMATOCRIT 29.7 % (36-48); LYMPHOCYTES # (AUTO) 0.5 K/uL (1.0-4.8); MEAN CORPUSCULAR HEMOGLOBIN 31.8 pg (27.0-33.0); MEAN CORPUSCULAR HGB CONC 33.7 g/dL (32.0-36.0); MEAN CORPUSCULAR VOLUME 94.6 fL (79-99); MONOCYTES # (AUTO) 0.4 K/uL (0.1-1.0); MONOCYTES % (AUTO) 3.8 % (3.0-13.0); NEUTROPHILS # (AUTO) 9.8 K/uL (1.8-7.7); NEUTROPHILS % (AUTO) 89.7 % (40.0-77.0); PLATELET COUNT (AUTO) 451 K/uL (130-400); RED BLOOD CELL COUNT(AUTO) 3.14 MIL/uL (4.00-5.50); RED CELL DISTRIBUTION WIDTH 13.6 % (11.0-15.5); WHITE BLOOD COUNT (AUTO) 10.9 K/uL (4.8-10.8)
[2023-11-01 04:56] LABS: CREATININE 1.3 mg/dL (0.5-1.5); MAGNESIUM 2.3 mg/dL (1.80-2.40)
[2023-11-02] VITALS (17 sets, daily range): BP systolic 111–137; BP diastolic 61–75; PULSE 78–101; RESP 16–24; O2SAT 94–97
[2023-11-02 05:14] LABS: BASOPHILS # (AUTO) 0.01 K/uL (0.00-0.20); BASOPHILS % (AUTO) 0.1 % (0.0-5.0); EOSINOPHILS # (AUTO) 0.04 K/uL (0.00-0.70); EOSINOPHILS % (AUTO) 0.4 % (0.0-8.0); HEMATOCRIT 32.3 % (36-48); IMMATURE GRANULOCYTE ABSOLUTE 0.13 K/uL (0-1); LYMPHOCYTES # (AUTO) 0.6 K/uL (1.0-4.8); LYMPHOCYTES % (AUTO) 5.6 % (21.0-51.0); MEAN CORPUSCULAR HEMOGLOBIN 31.8 pg (27.0-33.0); MEAN CORPUSCULAR HGB CONC 33.1 g/dL (32.0-36.0); MEAN CORPUSCULAR VOLUME 96.1 fL (79-99); MONOCYTES # (AUTO) 0.3 K/uL (0.1-1.0); MONOCYTES % (AUTO) 2.8 % (3.0-13.0); NEUTROPHILS % (AUTO) 89.8 % (40.0-77.0); PLATELET COUNT (AUTO) 422 K/uL (130-400); RED BLOOD CELL COUNT(AUTO) 3.36 MIL/uL (4.00-5.50); RED CELL DISTRIBUTION WIDTH 13.5 % (11.0-15.5)
[2023-11-02 05:37] LABS: ALBUMIN 1.9 g/dL (3.5-5.0); BILIRUBIN,TOTAL 0.5 mg/dL (0.2-1.0); CREATININE 1.2 mg/dL (0.5-1.5); MAGNESIUM 2.3 mg/dL (1.80-2.40); POTASSIUM 3.3 mmol/L (3.5-5.1)
[2023-11-02] MEDS: KCL 20 MEQ ERTAB PO ONE (11:17)
[2023-11-02] MEDS: SOLU-MEDROL 125MG VIAL IV SCH (20:34)
[2023-11-03] VITALS (18 sets, daily range): BP systolic 112–138; BP diastolic 66–75; PULSE 88–110; RESP 14–24; O2SAT 91–98
[2023-11-03 04:47] LABS: BASOPHILS # (AUTO) 0.01 K/uL (0.00-0.20); BASOPHILS % (AUTO) 0.1 % (0.0-5.0); HEMATOCRIT 35.7 % (36-48); IMMATURE GRANULOCYTE ABSOLUTE 0.09 K/uL (0-1); LYMPHOCYTES # (AUTO) 0.5 K/uL (1.0-4.8); LYMPHOCYTES % (AUTO) 5.3 % (21.0-51.0); MEAN CORPUSCULAR HEMOGLOBIN 31.8 pg (27.0-33.0); MEAN CORPUSCULAR HGB CONC 33.1 g/dL (32.0-36.0); MEAN CORPUSCULAR VOLUME 96.2 fL (79-99); MONOCYTES # (AUTO) 0.1 K/uL (0.1-1.0); MONOCYTES % (AUTO) 1.2 % (3.0-13.0); NEUTROPHILS # (AUTO) 7.8 K/uL (1.8-7.7); NEUTROPHILS % (AUTO) 92.3 % (40.0-77.0); PLATELET COUNT (AUTO) 445 K/uL (130-400); RED BLOOD CELL COUNT(AUTO) 3.71 MIL/uL (4.00-5.50); RED CELL DISTRIBUTION WIDTH 13.5 % (11.0-15.5); WHITE BLOOD COUNT (AUTO) 8.4 K/uL (4.8-10.8)
[2023-11-03 05:01] LABS: ALBUMIN 2.1 g/dL (3.5-5.0); BILIRUBIN,TOTAL 0.5 mg/dL (0.2-1.0); CREATININE 1.4 mg/dL (0.5-1.5); MAGNESIUM 2.5 mg/dL (1.80-2.40); POTASSIUM 4.2 mmol/L (3.5-5.1); TOTAL PROTEIN, SERUM 6.6 g/dL (6.0-8.3)
[2023-11-03] MEDS: LIDOCAINE 4% ADH..PATCH TP SCH (18:35)
[2023-11-03] MEDS: FUROSEMIDE 20 MG TABLET PO SCH (23:18)
[2023-11-04] VITALS (16 sets, daily range): BP systolic 130–154; BP diastolic 6–80; PULSE 87–110; RESP 14–22; O2SAT 94–97
[2023-11-04 04:03] LABS: BASOPHILS # (AUTO) 0.02 K/uL (0.00-0.20); BASOPHILS % (AUTO) 0.2 % (0.0-5.0); EOSINOPHILS # (AUTO) 0.01 K/uL (0.00-0.70); EOSINOPHILS % (AUTO) 0.1 % (0.0-8.0); HEMATOCRIT 35.2 % (36-48); LYMPHOCYTES # (AUTO) 0.5 K/uL (1.0-4.8); LYMPHOCYTES % (AUTO) 4.4 % (21.0-51.0); MEAN CORPUSCULAR HEMOGLOBIN 31.4 pg (27.0-33.0); MEAN CORPUSCULAR HGB CONC 32.4 g/dL (32.0-36.0); MONOCYTES # (AUTO) 0.1 K/uL (0.1-1.0); MONOCYTES % (AUTO) 0.9 % (3.0-13.0); NEUTROPHILS # (AUTO) 10.8 K/uL (1.8-7.7); NEUTROPHILS % (AUTO) 92.7 % (40.0-77.0); PLATELET COUNT (AUTO) 408 K/uL (130-400); RED BLOOD CELL COUNT(AUTO) 3.63 MIL/uL (4.00-5.50); RED CELL DISTRIBUTION WIDTH 13.6 % (11.0-15.5); WHITE BLOOD COUNT (AUTO) 11.7 K/uL (4.8-10.8)
[2023-11-04 04:15] LABS: BILIRUBIN,TOTAL 0.4 mg/dL (0.2-1.0); CREATININE 1.4 mg/dL (0.5-1.5); MAGNESIUM 2.9 mg/dL (1.80-2.40); POTASSIUM 3.6 mmol/L (3.5-5.1); TOTAL PROTEIN, SERUM 6.1 g/dL (6.0-8.3)
[2023-11-04] MEDS: ENOXAPARIN SODIUM 60 MG/0.6 ML SQ SCH (08:36)
[2023-11-05] VITALS (14 sets, daily range): BP systolic 128–141; BP diastolic 73–92; PULSE 90–108; RESP 16–24; O2SAT 94–97
[2023-11-05 03:45] LABS: BASOPHILS # (AUTO) 0.02 K/uL (0.00-0.20); BASOPHILS % (AUTO) 0.2 % (0.0-5.0); HEMATOCRIT 36.7 % (36-48); LYMPHOCYTES # (AUTO) 0.8 K/uL (1.0-4.8); LYMPHOCYTES % (AUTO) 6.3 % (21.0-51.0); MEAN CORPUSCULAR HEMOGLOBIN 31.5 pg (27.0-33.0); MEAN CORPUSCULAR HGB CONC 32.7 g/dL (32.0-36.0); MEAN CORPUSCULAR VOLUME 96.3 fL (79-99); MONOCYTES # (AUTO) 0.2 K/uL (0.1-1.0); MONOCYTES % (AUTO) 1.6 % (3.0-13.0); NEUTROPHILS # (AUTO) 10.9 K/uL (1.8-7.7); NEUTROPHILS % (AUTO) 89.4 % (40.0-77.0); PLATELET COUNT (AUTO) 394 K/uL (130-400); RED BLOOD CELL COUNT(AUTO) 3.81 MIL/uL (4.00-5.50); RED CELL DISTRIBUTION WIDTH 13.6 % (11.0-15.5); WHITE BLOOD COUNT (AUTO) 12.2 K/uL (4.8-10.8)
[2023-11-05 04:08] LABS: ALBUMIN 2.1 g/dL (3.5-5.0); BILIRUBIN,TOTAL 0.4 mg/dL (0.2-1.0); CREATININE 1.1 mg/dL (0.5-1.5); MAGNESIUM 2.9 mg/dL (1.80-2.40); POTASSIUM 3.4 mmol/L (3.5-5.1); TOTAL PROTEIN, SERUM 6.1 g/dL (6.0-8.3)
[2023-11-05 07:20] LABS: RHEUMATOID ARTHRITIS FACTOR 10.2 IU/mL (<14.0)
[2023-11-05 08:13] LABS: ABG BASE EXCESS 7.4 mmol/L (-2.0-3.0); ABG OXYGEN SATURATION 95.2 % (95.0-99.0); ABG PCO2 40 mmHg (32-45); ABG PH 7.511 (7.35-7.450); DEVICE COMMENT FRIST NP RR; PO2, ARTERIAL BG 68.7 mmHg (83.0-108.0); VENT MODE, BG OXYMIZER 10L (ROOM AIR)
[2023-11-05 08:14] LABS: MYOGLOBIN, SERUM 56 ng/mL (25-58)
[2023-11-05] MEDS: AZITHROMYCIN 250 MG TABLET PO SCH (15:06)
[2023-11-05] MEDS: MEROPENEM 1 GM in 0.9%NACL 100ML 100 ML IV SCH (15:06)
[2023-11-06] VITALS (14 sets, daily range): BP systolic 111–135; BP diastolic 63–77; PULSE 92–110; RESP 17–24; O2SAT 94–96
[2023-11-06 03:54] LABS: BASOPHILS # (AUTO) 0.04 K/uL (0.00-0.20); BASOPHILS % (AUTO) 0.3 % (0.0-5.0); IMMATURE GRANULOCYTE ABSOLUTE 0.65 K/uL (0-1); LYMPHOCYTES # (AUTO) 0.8 K/uL (1.0-4.8); LYMPHOCYTES % (AUTO) 5.4 % (21.0-51.0); MEAN CORPUSCULAR HEMOGLOBIN 31.3 pg (27.0-33.0); MEAN CORPUSCULAR HGB CONC 32.7 g/dL (32.0-36.0); MEAN CORPUSCULAR VOLUME 95.9 fL (79-99); MONOCYTES # (AUTO) 0.2 K/uL (0.1-1.0); MONOCYTES % (AUTO) 1.6 % (3.0-13.0); NEUTROPHILS # (AUTO) 13.5 K/uL (1.8-7.7); NEUTROPHILS % (AUTO) 88.4 % (40.0-77.0); PLATELET COUNT (AUTO) 421 K/uL (130-400); RED BLOOD CELL COUNT(AUTO) 3.86 MIL/uL (4.00-5.50); RED CELL DISTRIBUTION WIDTH 13.7 % (11.0-15.5); WHITE BLOOD COUNT (AUTO) 15.2 K/uL (4.8-10.8)
[2023-11-06 04:16] LABS: CREATININE 1.1 mg/dL (0.5-1.5); MAGNESIUM 2.7 mg/dL (1.80-2.40)
[2023-11-06] MEDS: MORPHINE 2 MG SYG IVP ONE (10:48)
[2023-11-06] MEDS ORDERED: COMPOUND IV MISC 1 EACH IVSOLN MISC PRN (11:30)
[2023-11-06] MEDS: FUROSEMIDE 40MG VIAL IV ONE (12:11)
[2023-11-06] MEDS ORDERED: ALPRAZOLAM 0.5 MG TABLET PO PRN (14:30)
[2023-11-07] VITALS (15 sets, daily range): BP systolic 120–130; BP diastolic 65–87; PULSE 91–103; RESP 18–26; O2SAT 93–99
[2023-11-07 03:55] LABS: BASOPHILS # (AUTO) 0.03 K/uL (0.00-0.20); BASOPHILS % (AUTO) 0.2 % (0.0-5.0); EOSINOPHILS # (AUTO) 0.01 K/uL (0.00-0.70); EOSINOPHILS % (AUTO) 0.1 % (0.0-8.0); HEMATOCRIT 38.4 % (36-48); IMMATURE GRANULOCYTE ABSOLUTE 0.39 K/uL (0-1); MEAN CORPUSCULAR HEMOGLOBIN 31.3 pg (27.0-33.0); MEAN CORPUSCULAR HGB CONC 32.6 g/dL (32.0-36.0); MEAN CORPUSCULAR VOLUME 96.2 fL (79-99); MONOCYTES # (AUTO) 0.2 K/uL (0.1-1.0); NEUTROPHILS # (AUTO) 14.6 K/uL (1.8-7.7); NEUTROPHILS % (AUTO) 90.3 % (40.0-77.0); PLATELET COUNT (AUTO) 366 K/uL (130-400); RED BLOOD CELL COUNT(AUTO) 3.99 MIL/uL (4.00-5.50); RED CELL DISTRIBUTION WIDTH 13.4 % (11.0-15.5); WHITE BLOOD COUNT (AUTO) 16.2 K/uL (4.8-10.8)
[2023-11-07 04:20] LABS: POTASSIUM 2.8 mmol/L (3.5-5.1)
[2023-11-07] MEDS: SOLU-MEDROL 40MG VIAL IVP SCH (08:26)
[2023-11-07] MEDS: KCL 20 MEQ ERTAB PO ONE (10:01)
[2023-11-07] MEDS: POTASSIUM CHLORIDE 10% ELIXIR 20 MEQ/15 ML UDCUP PO ONE (10:25)
[2023-11-08] VITALS (17 sets, daily range): BP systolic 104–136; BP diastolic 62–77; PULSE 84–117; RESP 18–24; O2SAT 94–97
[2023-11-08 03:47] LABS: BASOPHILS # (AUTO) 0.04 K/uL (0.00-0.20); BASOPHILS % (AUTO) 0.2 % (0.0-5.0); EOSINOPHILS # (AUTO) 0.08 K/uL (0.00-0.70); EOSINOPHILS % (AUTO) 0.4 % (0.0-8.0); IMMATURE GRANULOCYTE ABSOLUTE 0.54 K/uL (0-1); LYMPHOCYTES # (AUTO) 1.6 K/uL (1.0-4.8); LYMPHOCYTES % (AUTO) 8.3 % (21.0-51.0); MEAN CORPUSCULAR HEMOGLOBIN 31.3 pg (27.0-33.0); MEAN CORPUSCULAR HGB CONC 34.1 g/dL (32.0-36.0); MONOCYTES # (AUTO) 1.1 K/uL (0.1-1.0); MONOCYTES % (AUTO) 5.7 % (3.0-13.0); NEUTROPHILS # (AUTO) 16.2 K/uL (1.8-7.7); NEUTROPHILS % (AUTO) 82.6 % (40.0-77.0); NUCLEATED RED BLOOD CELLS 0.2 % (0.0-0.19); PLATELET COUNT (AUTO) 302 K/uL (130-400); RED BLOOD CELL COUNT(AUTO) 3.48 MIL/uL (4.00-5.50); RED CELL DISTRIBUTION WIDTH 13.5 % (11.0-15.5); WHITE BLOOD COUNT (AUTO) 19.6 K/uL (4.8-10.8)
[2023-11-08 03:54] LABS: CREATININE 0.9 mg/dL (0.5-1.5)
[2023-11-08] MEDS ORDERED: POTASSIUM CHLORIDE 10% ELIXIR 20 MEQ/15 ML UDCUP PO SCH (09:00)
[2023-11-08] MEDS: FUROSEMIDE 20MG VIAL IV STA (09:02)
[2023-11-09] VITALS (15 sets, daily range): BP systolic 109–144; BP diastolic 58–76; PULSE 96–125; RESP 16–24; O2SAT 18–95
[2023-11-09 03:38] LABS: HEMATOCRIT 31.1 % (36-48); MEAN CORPUSCULAR HEMOGLOBIN 31.9 pg (27.0-33.0); MEAN CORPUSCULAR VOLUME 90.9 fL (79-99); NUCLEATED RED BLOOD CELLS 0.1 % (0.0-0.19); RED BLOOD CELL COUNT(AUTO) 3.42 MIL/uL (4.00-5.50); RED CELL DISTRIBUTION WIDTH 13.3 % (11.0-15.5); WHITE BLOOD COUNT (AUTO) 16.5 K/uL (4.8-10.8)
[2023-11-09 03:56] LABS: ALBUMIN 1.8 g/dL (3.5-5.0); BILIRUBIN,TOTAL 0.5 mg/dL (0.2-1.0); CREATININE 0.9 mg/dL (0.5-1.5); TOTAL PROTEIN, SERUM 4.9 g/dL (6.0-8.3)
[2023-11-09] MEDS: KCL 20 MEQ ERTAB PO ONE (08:00)
[2023-11-09] MEDS: POTASSIUM CHLORIDE 20MEQ/100ML 100 ML IV ONE (08:00)
[2023-11-09] MEDS: FUROSEMIDE 20 MG TABLET PO SCH (14:11)
[2023-11-09 21:09] LABS: POTASSIUM 4.6 mmol/L (3.5-5.1)
[2023-11-10] VITALS (17 sets, daily range): BP systolic 95–152; BP diastolic 59–86; PULSE 96–125; RESP 14–32; O2SAT 89–97
[2023-11-10 05:04] LABS: HEMATOCRIT 34.2 % (36-48); MEAN CORPUSCULAR HGB CONC 34.8 g/dL (32.0-36.0); MEAN CORPUSCULAR VOLUME 91.9 fL (79-99); NUCLEATED RED BLOOD CELLS 0.1 % (0.0-0.19); RED BLOOD CELL COUNT(AUTO) 3.72 MIL/uL (4.00-5.50); RED CELL DISTRIBUTION WIDTH 13.6 % (11.0-15.5); WHITE BLOOD COUNT (AUTO) 18.4 K/uL (4.8-10.8)
[2023-11-10 05:23] LABS: BILIRUBIN,TOTAL 0.5 mg/dL (0.2-1.0); MAGNESIUM 1.9 mg/dL (1.80-2.40); POTASSIUM 3.8 mmol/L (3.5-5.1); TOTAL PROTEIN, SERUM 5.5 g/dL (6.0-8.3)
[2023-11-10] MEDS: METOPROLOL TARTRATE 1 MG/ML 5ML VIAL IV PRN (08:30)
[2023-11-10] MEDS ORDERED: KCL 20 MEQ ERTAB PO ONE (08:30)
[2023-11-10] MEDS: HYDROXYZINE 25 MG TABLET PO PRN (10:31)
[2023-11-10] MEDS: FUROSEMIDE 40MG VIAL IV SCH (17:15)
[2023-11-11] VITALS (13 sets, daily range): BP systolic 100–134; BP diastolic 66–83; PULSE 91–123; RESP 18–28; O2SAT 94–96
[2023-11-11 03:51] LABS: HEMATOCRIT 33.3 % (36-48); MEAN CORPUSCULAR HEMOGLOBIN 31.6 pg (27.0-33.0); MEAN CORPUSCULAR HGB CONC 35.1 g/dL (32.0-36.0); PLATELET COUNT (AUTO) 293 K/uL (130-400); RED CELL DISTRIBUTION WIDTH 13.6 % (11.0-15.5); WHITE BLOOD COUNT (AUTO) 16.4 K/uL (4.8-10.8)
[2023-11-11 04:05] LABS: ALBUMIN 2.1 g/dL (3.5-5.0); BILIRUBIN,TOTAL 0.5 mg/dL (0.2-1.0); MAGNESIUM 2.2 mg/dL (1.80-2.40); PHOSPHORUS 3.6 mg/dL (2.5-4.9); TOTAL PROTEIN, SERUM 5.7 g/dL (6.0-8.3)
[2023-11-11 04:22] LABS: EOSINOPHILS % (MANUAL) 1 % (1-6); LYMPHOCYTES % (MANUAL) 9 % (22-44); MAN.DIFF COMMENT-IMPRESSION MANUAL DIFFERENTIAL; MONOCYTES % (MANUAL) 2 % (2-9); PLATELET MORPHOLOGY COMMENT ADEQUATE; SEGMENTED NEUTROPHILS % 88 % (40-70); TOTAL CELLS COUNTED 100; WBC MORPHOLOGY SMUDGE CELLS 1+
[2023-11-11 14:11] LABS: ATYPICAL P-ANCA AB <1:20 titer (Neg:<1:20); CYTOPLASMIC (C-ANCA) AB, IGG <1:20 titer (Neg:<1:20)
[2023-11-11] MEDS ORDERED: HYDRALAZINE 20MG/ML VIAL IV PRN (16:00)
[2023-11-11] MEDS ORDERED: METOPROLOL TARTRATE 25 MG TAB PO SCH ×2 (21:00)
[2023-11-11] MEDS ORDERED: GLYCOPYRROLATE 0.2 MG/ML 5 ML VIAL IVP PRN (22:00)
[2023-11-11] MEDS: LORAZEPAM 2 MG/ML 1 ML VIAL IVP PRN (23:39)
[2023-11-11] MEDS: MORPHINE 2 MG SYG IVP PRN (23:40)
[2023-11-12 07:00] VITALS: O2SAT 95
[2023-11-12 09:28] VITALS: PULSE 113; RESP 24; O2SAT 97
[2023-11-14 15:15] LABS: ATYPICAL P-ANCA AB <1:20 titer (Neg:<1:20); CYTOPLASMIC (C-ANCA) AB, IGG <1:20 titer (Neg:<1:20)
[2023-11-14 16:12] LABS: DRVVT CONFIRMATION-LUPUS 1.2 ratio (0.8-1.2); DRVVT-LUPUS ANTICOAGULANT 53.3 sec (0.0-47.0)
== END 2023-11-12 17:54 | disposition hospice, inpatient (51) | DRG 177 ==
LOC: EDH 13:38 → EDHIP 16:15 → 2BH 17:01 → 2DH 11-01 15:54
PROVIDERS: ADMIT Internal Medicine; ATTEND Internal Medicine
PROC: 5A09357 Assistance with Respiratory Ventilation, Less than 24 Consecutive Hours, Continuous Positive Airway Pressure (ICD-10-PCS; principal; 2023-10-27)
PROC: 5A09357 Assistance with Respiratory Ventilation, Less than 24 Consecutive Hours, Continuous Positive Airway Pressure (ICD-10-PCS; 2023-10-28)
PROC: 5A09357 Assistance with Respiratory Ventilation, Less than 24 Consecutive Hours, Continuous Positive Airway Pressure (ICD-10-PCS; 2023-10-28)
DX: J69.0 Pneumonitis due to inhalation of food and vomit (principal); I26.99 Other pulmonary embolism without acute cor pulmonale; J96.01 Acute respiratory failure with hypoxia; N17.9 Acute kidney failure, unspecified; N30.00 Acute cystitis without hematuria; E87.3 Alkalosis; D64.9 Anemia, unspecified; N18.9 Chronic kidney disease, unspecified; E11.22 Type 2 diabetes mellitus with diabetic chronic kidney disease; I13.10 Hypertensive heart and chronic kidney disease without heart failure, with stage 1 through stage 4 chronic kidney disease, or unspecified chronic kidney disease; J67.9 Hypersensitivity pneumonitis due to unspecified organic dust; J84.116 Cryptogenic organizing pneumonia; B96.1 Klebsiella pneumoniae [K. pneumoniae] as the cause of diseases classified elsewhere; Z20.822 Contact with and (suspected) exposure to COVID-19; B96.29 Other Escherichia coli [E. coli] as the cause of diseases classified elsewhere; E78.00 Pure hypercholesterolemia, unspecified; G47.33 Obstructive sleep apnea (adult) (pediatric); I77.82 Antineutrophilic cytoplasmic antibody [ANCA] vasculitis; J44.9 Chronic obstructive pulmonary disease, unspecified; J84.114 Acute interstitial pneumonitis; K21.9 Gastro-esophageal reflux disease without esophagitis; Z96.653 Presence of artificial knee joint, bilateral; G89.29 Other chronic pain; K44.9 Diaphragmatic hernia without obstruction or gangrene; K76.0 Fatty (change of) liver, not elsewhere classified; Z66 Do not resuscitate; Z74.01 Bed confinement status; Z79.01 Long term (current) use of anticoagulants; Z79.899 Other long term (current) drug therapy; Z82.49 Family history of ischemic heart disease and other diseases of the circulatory system; Z88.1 Allergy status to other antibiotic agents; Z86.711 Personal history of pulmonary embolism; Z86.718 Personal history of other venous thrombosis and embolism; Z95.0 Presence of cardiac pacemaker; Z95.828 Presence of other vascular implants and grafts
CPT/HCPCS: 36415; 36600; 71045; 71250; 71270; 74018; 74230; 76700; 80048; 80053; 80076; 81001; 82103; 82306; 82435; 82550; 82803; 82947; 82948; 83516; 83605; 83735; 83874; 83880; 84100; 84132; 84145; 84295; 84443; 84484; 85018; 85025; 85027; 85610; 85651; 85730; 85732; 86038; 86140; 86147; 86215; 86235; 86255; 86431; 86850; 86900; 86901; 87040; 87071; 87077; 87088; 87186; 87205; 87449; 87635; 87641; 87804; 87880; 92611; 93005; 93306; 93970; 94010; 94640; 94660; 94664; 94667; 94668; 96365; 96375; A6250; C1894; C9113; G0378; J0692; J1650; J1885; J1940; J2020; J2060; J2185; J2270; J2405; J2543; J2920; J2930; J3475; J3480; J3490; Q9967; C1750